=== PATIENT | female | born 1970 | race Caucasian/White ===

== ENCOUNTER 2018-09-12 09:45 | Outpatient (CLI) | payer OTHER ==
[2018-09-12 10:56] LABS: Hemoglobin 14.3 g/dL (12.0-16.0); Mean Corpuscular HGB CONC 34.2 g/dL (32.0-36.0); Mean Corpuscular Hemoglobin 32.5 pg (27.0-31.0); Mean Corpuscular Volume 95.1 fL (78.0-98.0); Mean Platelet Volume 7.6 fL (7.4-10.4); Platelet Count 207 thou/uL (130-400); RBC Distribution Width 10.8 % (11.5-14.5); White Blood Cell (WBC) Count 5.6 thou/uL (4.8-10.8)
[2018-09-12 11:07] LABS: BHCG - Serum Negative (NEGATIVE); Pregs Control Background? CLEAR/WHITE (CLR/WHITE); Pregs Control Bar Appear? YES (CONTROL BAR)
[2018-09-12 11:21] LABS: ALT (SGPT) 58 U/L (8-55); AST (SGOT) 63 U/L (5-34); Albumin 4.4 g/dL (3.5-5.0); Alkaline Phosphatase 72 U/L (40-150); Anion Gap 12 mmol/L (10-20); BUN (Urea Nitrogen) 13 mg/dL (7.0-18.7); Bilirubin, Total 0.5 mg/dL (0.2-1.2); Calc. Creatinine Clearance 0 mL/min (70-130); Calcium 9.6 mg/dL (7.8-10.44); Carbon Dioxide 25 mmol/L (22-29); Chloride 107 mmol/L (98-107); Estimated GFR-MDRD 86; Glucose 110 mg/dL (70-105); Potassium 4.3 mmol/L (3.5-5.1); Protein, Total 8.4 g/dL (6.0-8.3); Sodium 140 mmol/L (136-145)
== END 2018-09-12 09:46 | disposition home or self-care (01) ==
LOC: LABBT 09:45
PROVIDERS: ATTEND Obstetrics & Gynecology
DX: Z01.812 Encounter for preprocedural laboratory examination (principal); N85.8 Other specified noninflammatory disorders of uterus
CPT/HCPCS: 80053; 84703; 85027; 86850; 86900; 86901

== ENCOUNTER 2018-09-12 11:15 | Inpatient (IN) | payer OTHER ==
[2018-09-12 10:01] VITALS: BMI 39.1
[2018-09-16] MEDS ORDERED: CEFAZOLIN 2 GM/50 ML BAG ONE (09:37)
[2018-09-16] MEDS ORDERED: Fentanyl 100 MCG/2 ML VIAL ONE ×3 (11:46→15:31)
[2018-09-16] MEDS ORDERED: HYDROmorphone 0.5 MG/0.5 ML SYRINGE ONE ×2 (11:46)
[2018-09-16] MEDS ORDERED: Ondansetron PF 4 MG/2 ML Vial IVP PRN (13:19)
[2018-09-16] MEDS ORDERED: Naloxone HCl 0.4 mg/ml Vial IV PRN (13:19)
[2018-09-16] MEDS ORDERED: fentaNYL Citrate/PF 2,000 MCG in Sodium Chloride 0.9% 60 ML IV PRN (13:19)
[2018-09-16] MEDS ORDERED: Ondansetron HCl/PF 4 MG/2 ML Vial IVP PRN (13:19)
[2018-09-16] MEDS ORDERED: Zolpidem Tartrate 5 MG TAB PO PRN (13:19)
[2018-09-16] MEDS ORDERED: HYDROmorphone 2 MG/ML VIAL SLOW IVP PRN (13:19)
[2018-09-16] MEDS ORDERED: diphenhydrAMINE 50 MG/ML VIAL IVP PRN (13:19)
[2018-09-16] MEDS ORDERED: Promethazine HCl 25 MG/ML VIAL IM PRN ×2 (13:19)
[2018-09-16] MEDS ORDERED: Promethazine HCl 25 MG/ML VIAL SLOW IVP PRN (13:19)
[2018-09-16] MEDS ORDERED: diphenhydrAMINE 50 MG/ML VIAL IM PRN (13:19)
[2018-09-16] MEDS ORDERED: PACU-Morphine 4MG/ML VIAL SLOW IVP PRN (13:19)
[2018-09-16] MEDS ORDERED: diphenhydrAMINE 25 MG CAP PO PRN (13:19)
[2018-09-16] MEDS ORDERED: Communication Order-Pharmacy FS SCH (13:30)
[2018-09-16] MEDS ORDERED: Estradiol 0.1mg/24 Hour Patch (Weekly) TD SCH (16:53)
[2018-09-16] MEDS ORDERED: traMADol HCl 50 MG TAB PO PRN ×2 (16:53)
[2018-09-16] MEDS ORDERED: Morphine 2 MG/ML SYRINGE SLOW IVP PRN (16:53)
[2018-09-16] MEDS ORDERED: Simethicone Chewable 80 MG TAB PO PRN (16:53)
[2018-09-16] MEDS ORDERED: Bisacodyl 10 MG SUPP PR PRN (16:53)
[2018-09-16] MEDS: Lactated Ringer's 1,000 ML IV SCH (16:59)
[2018-09-16] MEDS: Ketorolac Tromethamine 30 MG/ML VIAL IVP SCH ×2 (18:22→23:52)
[2018-09-16] MEDS ORDERED: Dexamethasone 20 MG/5 ML VIAL ONE (20:27)
[2018-09-16] MEDS ORDERED: PROPOFOL 200 MG/20 ML VIAL ONE (20:27)
[2018-09-16] MEDS ORDERED: Glycopyrrolate 0.2 MG/ML 5 ML SYRINGE ONE (20:27)
[2018-09-16] MEDS ORDERED: Ketorolac Tromethamine 30 MG/ML VIAL ONE (20:27)
[2018-09-16] MEDS ORDERED: ePHEDrine/0.9% NaCl/PF SYRINGE 50 mg/10 ml ONE (20:27)
[2018-09-16] MEDS ORDERED: Lidocaine 1% PF 5 ML VIAL ONE (20:27)
[2018-09-16] MEDS ORDERED: Ondansetron PF 4 MG/2 ML Vial ONE (20:27)
[2018-09-17] MEDS: Lactated Ringer's 1,000 ML IV SCH ×2 (01:15→19:07)
[2018-09-17] MEDS ORDERED: Naloxone HCl 0.4 mg/ml Vial IV PRN (04:44)
[2018-09-17] MEDS ORDERED: Promethazine HCl 25 MG/ML VIAL IM PRN (04:44)
[2018-09-17] MEDS ORDERED: diphenhydrAMINE 50 MG/ML VIAL IVP PRN (04:44)
[2018-09-17] MEDS ORDERED: diphenhydrAMINE 25 MG CAP PO PRN (04:44)
[2018-09-17] MEDS ORDERED: Zolpidem Tartrate 5 MG TAB PO PRN (04:44)
[2018-09-17] MEDS ORDERED: Ondansetron PF 4 MG/2 ML Vial IVP PRN (04:44)
[2018-09-17] MEDS ORDERED: Morphine CADD 1 MG/ML CADD IVPB PRN (04:44)
[2018-09-17] MEDS ORDERED: diphenhydrAMINE 50 MG/ML VIAL IM PRN (04:44)
[2018-09-17] MEDS ORDERED: Morphine 2 MG/ML SYRINGE SLOW IVP SCH (04:45)
[2018-09-17] MEDS ORDERED: Communication Order-Pharmacy FS SCH (04:45)
[2018-09-17 07:26] LABS: Hemoglobin 12.3 g/dL (12.0-16.0); Mean Corpuscular HGB CONC 33.1 g/dL (32.0-36.0); Mean Corpuscular Hemoglobin 31.5 pg (27.0-31.0); Mean Corpuscular Volume 95.2 fL (78.0-98.0); Mean Platelet Volume 7.3 fL (7.4-10.4); Platelet Count 190 thou/uL (130-400); RBC Distribution Width 10.7 % (11.5-14.5); Red Blood Cell (RBC) Count 3.91 mill/uL (4.20-5.40)
[2018-09-17] MEDS ORDERED: Morphine 4 MG/ML VIAL SLOW IVP PRN (07:45)
[2018-09-17] MEDS ORDERED: Morphine 10 MG/ML VIAL SLOW IVP PRN (07:49)
--- NOTE | 2018-09-17 08:31 | OP ---
DATE OF PROCEDURE: 09/16/2018 PREOPERATIVE DIAGNOSES: 1. 48-year-old female with 20 cm adnexal mass with pelvic pain. 2. Most likely serous cystadenoma. 3. Postmenopausal state. POSTOPERATIVE DIAGNOSES: 1. 48-year-old female with 20-cm adnexal mass with pelvic pain. 2. Most likely serous cystadenoma. 3. Postmenopausal state. PROCEDURES PERFORMED: Total abdominal hysterectomy and bilateral salpingo-oophorectomy. SECURITY SME SURGEON: Toshia Ferraro MD ANESTHESIA: General endotracheal. ESTIMATED BLOOD LOSS: 100 mL. COMPLICATIONS: None. COUNTS: Correct x2. ANTIBIOTICS: 2 g Ancef, on-call to OR. FINDINGS: 1. Large, smooth, capsuled right ovarian cyst, most likely serous cystadenoma. Intact capsule, no resistance noted. 2. Postmenopausal-appearing left ovary, tube, and uterus. 3. Normal-appearing omentum, bowel with no evidence of any tumor implants or ascitic fluid noted on exam of the abdomen. 4. Clear urine present in Kulkarni catheter postprocedure. 5. Courses of the ureters postprocedure were noted to be below the pedicle sites on palpation and visualization. PATHOLOGY: Uterus, cervix, bilateral tubes, and ovaries. DISPOSITION: Recovery room, stable. DESCRIPTION OF PROCEDURE: The patient previously received informed consent in regard to surgery. She was taken back to the operating room, where she received general endotracheal anesthetic agent without complications. She was prepped and draped in usual sterile fashion and Kulkarni catheter was then placed. A vertical midline incision was taken up toward the umbilicus. The fascia was then nicked in midline. Fascial incision extended superiorly and inferiorly. The peritoneal cavity was entered and a large adnexal mass was protruding through the peritoneal opening. The ovary was easily delivered intact and the pedicles beneath the ovary were clamped with 2 Kevin clamps. A back clamp was also placed, and then, it was cut intervening between this portion with Calhoun scissors. The large cyst of the right ovary was sent for final pathology. The pedicle sites were tied with 4-1/2 tie of 0 Vicryl and a free tie of 0 Vicryl securing hemostasis. O'Donovan O'Carpenter retractor was then placed, bowel was packed away with moistened laparotomy sponges. The uterus was grasped with 2 Jeniffer clamps, and the left tube and ovary were inspected. The left round ligament was then grasped and suture ligated with 0 Vicryl suture and transected medially through this. A window in the posterior broad ligament was made just below the left infundibulopelvic ligament, and this was clamped and cut and a 4-1/2 tie of 0 Vicryl secured this to the pedicle. The broad ligament was incised and the uterine vessels were skeletonized. The anterior leaf of the broad ligament was opened up and the vesicouterine peritoneum was dissected in layering technique dropping the bladder past cervicovaginal junction. The uterine vessels were clamped with Kevin clamps, and the internal cervical os region transected and suture ligated. This was then repeated, the right round ligament being suture ligated and transected. Again, a defect in the posterior broad ligament was made removing the remainder of the right fallopian tube. The pedicles were secured with 4-1/2 tie and free tie of 0 Vicryl. The uterine vessels again were skeletonized in similar fashion. Vesicouterine peritoneum was incised in layering technique, dropping the bladder past the cervical vaginal angles. Straight [place] clamps were then utilized to clamp the remainder of the cardinal uterosacral ligaments. Sequential bites and transection staying within the previous pedicle sites were carried out to the vaginal angles of reach. Two Kevin clamps were placed across the vaginal angles and the bladder was noted to be safely dissected away from the operative site. The cervix was then incised with Calhoun scissors and Courtney scissors removing the specimen. The vaginal cuff angles were then suture ligated with Hausmeister stitch fashion with 0 Vicryl suture and then intervening [id number] stitches of 0 Vicryl placed in remainder of the vaginal cuff securing the vaginal cuff closure. The pelvis was then irrigated and suctioned. Pedicle sites were noted to be all hemostatic. The course of the ureters was traced and appeared to be well below the operative sites. Clear urine was draining from the Kulkarni catheter. The retractor along with the sponges were removed. The lap count was correct. The fascia was then closed. The muscle bellies were inspected and noted to be hemostatic. The fascia was then closed with a looped #1 PDS in running continuous fashion. Fascial closure was confirmed and was noted to be adequately approximated. Subcutaneous tissue was irrigated and noted to be hemostatic prior to approximation with 3-0 plain gut in a running technique. The skin was then stapled. Surgery was terminated and there were no anesthetic or surgical complications. Job ID: [id number]
[2018-09-17] MEDS: Ketorolac Tromethamine 30 MG/ML VIAL IVP SCH ×2 (08:40→19:17)
[2018-09-17] MEDS ORDERED: HYDROcodone/Acetaminophen 7.5/325 mg Tablet PO PRN (16:03)
[2018-09-17] MEDS: Ibuprofen 800 MG TAB PO SCH (22:20)
[2018-09-18] MEDS ORDERED: HYDROcodone/Acetaminophen 7.5/325 mg Tablet PO PRN ×2 (01:03)
[2018-09-18] MEDS: Lactated Ringer's 1,000 ML IV SCH ×2 (01:39→13:48)
[2018-09-18] MEDS ORDERED: Ondansetron ODT 4 MG TAB PO PRN (10:39)
[2018-09-18 12:04] VITALS: BP 119/80; TEMP 98.5
[2018-09-18] MEDS ORDERED: Estradiol 0.1mg/24 Hour Patch (Weekly) TD SCH (12:30)
--- NOTE | 2018-09-18 13:36 | DIS ---
DATE OF ADMISSION: 09/16/2018 DATE OF DISCHARGE: 09/18/2018 DIAGNOSIS: Mucinous cystadenoma of the ovary. PROCEDURE PERFORMED: Total abdominal hysterectomy with bilateral salpingo-oophorectomy. SUMMARY OF HOSPITAL COURSE: Ms. Trores is a 48-year-old [place] female, who had developed approximately 20 cm adnexal mass for approximately a year. She then had increasing symptoms of pelvic pain and abdominal distention due to the mass effect. She underwent a definitive surgical therapy with a BALWINDER-BSO on 09/16/2018. Postoperatively, she has had stable vital signs throughout, her hematocrit was 37.3%. 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 She is ambulating, voiding without difficulty, tolerating her diet, and is passing flatus. Her pathology did show a benign mucinous cystadenoma of the right ovary. Her left ovary had benign follicular cyst and was unremarkable. Her uterus had no significant pathologic disease seen. She will be discharged home today and will have a prescription for [place] 5 mg-325 mg 1 to 2 q.4 to 6 hours p.r.n. pain, [id number] ibuprofen, and will have a followup for staple removal in 10 days and 6 weeks' postop. Job ID: [id number]
[2018-09-18] MEDS: Ibuprofen 800 MG TAB PO SCH (13:48)
[2018-09-21] MEDS ORDERED: Ibuprofen 800 MG TAB PO SCH (21:00)
== END 2018-09-18 13:40 | disposition home or self-care (01) | DRG 743 ==
LOC: SURG B 09-16 09:10 → 3SE 09-16 16:50
PROVIDERS: ADMIT Obstetrics & Gynecology; ATTEND Obstetrics & Gynecology
PROC: 0UT90ZZ Resection of Uterus, Open Approach (ICD-10-PCS; principal; 2018-09-16)
PROC: 0UT20ZZ Resection of Bilateral Ovaries, Open Approach (ICD-10-PCS; 2018-09-16)
PROC: 0UT70ZZ Resection of Bilateral Fallopian Tubes, Open Approach (ICD-10-PCS; 2018-09-16)
DX: D27.0 Benign neoplasm of right ovary (principal); N83.02 Follicular cyst of left ovary
CPT/HCPCS: 36415; 85027; 88307; J1100; J1170; J1885; J2001; J2270; J2405; J2550; J2704; J3010; J7050; Q0162

== ENCOUNTER 2018-11-10 11:43 | Emergency (ER) | payer SELFPAY ==
[2018-11-10] MEDS ORDERED: ISOVUE-370 76%-LOCM 1 ML ONE (12:46)
[2018-11-10] MEDS ORDERED: Iopamidol 370 76% 50 ML VIAL FS ONE (12:46)
[2018-11-10 13:23] LABS: #Eosinphils 0.1 thou/uL (0.0-0.7); #Lymphocytes 1.8 thou/uL (1.20-3.40); #Monocytes 0.7 thou/uL (0.11-0.59); #Neutrophils 5.4 thou/uL (1.40-6.50); %Basophils 0.4 % (0.0-1.0); %Lymphocytes 22.5 % (21.0-51.0); %Monocytes 8.5 % (0.0-10.0); %Neutrophils 67.6 % (42.0-75.0); Hemoglobin 12.5 g/dL (12.0-16.0); Mean Corpuscular HGB CONC 33.2 g/dL (32.0-36.0); Mean Corpuscular Hemoglobin 32.2 pg (27.0-31.0); Mean Corpuscular Volume 97.2 fL (78.0-98.0); Mean Platelet Volume 7.3 fL (7.4-10.4); Platelet Count 167 thou/uL (130-400); RBC Distribution Width 10.9 % (11.5-14.5); Red Blood Cell (RBC) Count 3.89 mill/uL (4.20-5.40); White Blood Cell (WBC) Count 7.9 thou/uL (4.8-10.8)
[2018-11-10 13:44] LABS: ALT (SGPT) 34 U/L (8-55); AST (SGOT) 30 U/L (5-34); Albumin 3.8 g/dL (3.5-5.0); Alkaline Phosphatase 68 U/L (40-150); Anion Gap 10 mmol/L (10-20); BUN (Urea Nitrogen) 12 mg/dL (7.0-18.7); Bilirubin, Total 0.5 mg/dL (0.2-1.2); Calc. Creatinine Clearance 0 mL/min (70-130); Calcium 8.6 mg/dL (7.8-10.44); Carbon Dioxide 26 mmol/L (22-29); Chloride 106 mmol/L (98-107); Estimated GFR-MDRD 79; Globulin 3.7 g/dL (2.4-3.5); Glucose 194 mg/dL (70-105); Potassium 3.5 mmol/L (3.5-5.1); Protein, Total 7.5 g/dL (6.0-8.3); Sodium 138 mmol/L (136-145)
[2018-11-10 14:55] LABS: Bilirubin Negative (Negative); Blood, Urine Negative (Negative); Clarity CLEAR (Clear); Glucose, Urine (Dipstick) Negative (Negative); Leukocyte Small (Negative); Nitrite Negative (Negative); Protein, Urine (Dipstick) Negative (Neg-Trace); Specific Gravity, Urine 1.008 (1.002-1.036); Urobilinogen 0.2 mg/dL (0.2-1.0)
[2018-11-10 14:57] LABS: Bacteria/HPF None Seen HPF (None Seen); Hyaline Casts/LPF 0-3 HYALINE CAST LPF (0-3 Hyaline); Pathc Cast-AUWi Flag 0.14 (0-2.49); RBC/HPF 0-3 HPF (0-3); Squamous Epithelial 0-3 HPF (0-3)
--- NOTE | 2018-11-10 15:05 | CT ---
CT OF THE ABDOMEN AND PELVIS WITH CONTRAST: COMPARISON: 11/05/2016. HISTORY: Diarrhea. Two episodes of bloody stool. TECHNIQUE: Multiple contiguous axial images were obtained in a CT of the abdomen and pelvis with contrast. P.o. contrast was administered. Coronal reformats were performed. FINDINGS: The patient is status post cholecystectomy and hysterectomy. The liver, kidneys, adrenal glands, spl een, and pancreas are unremarkable. NO free air, free fluid, or stranding changes are seen in the ab domen or pelvis. The large and small bowel are unremarkable. The appendix is unremarkable. No abdominal or pelvic ly mphadenopathy are seen. Degenerative changes are seen in the spine. The visualized inferior thorax and abdominal wall soft t issues are unremarkable. IMPRESSION: No evidence of acute intraabdominal/pelvic abnormality. POS: MYRON
== END 2018-11-10 16:11 | disposition home or self-care (01) ==
LOC: ERS 11:43
DX: R19.7 Diarrhea, unspecified (principal)
CPT/HCPCS: 36415; 74177; 80053; 81003; 81015; 83605; 85025; 93005; Q9966; Q9967

== ENCOUNTER 2019-04-28 01:55 | Emergency (ER) | payer SELFPAY ==
--- NOTE | 2019-04-28 06:46 | ULT ---
ULTRASOUND WITH DOPPLER DUPLEX VENOUS LOWER EXTREMITY LEFT: CPT: 80708 ICD-10-PCS: B54D INDICATION: Left lower extremity pain. TECHNIQUE: Color flow Doppler, spectral waveform analysis of pulsed Doppler, and bess-scale imaging with henok ashok and augmentation, were used to evaluate the left common femoral, femoral, popliteal, posterior t ibial, and superficial femoral, veins; and the proximal portions of the profunda femoral and greater saphenous, veins. FINDINGS: There is appropriate compressibility and flow within the imaged deep vein system of the left lower ex tremity without evidence of thrombus. IMPRESSION: No deep venous thrombosis. POS: STEFFEN
== END 2019-04-28 06:00 | disposition home or self-care (01) ==
LOC: ERS 01:55
DX: S80.12XA Contusion of left lower leg, initial encounter (principal); X58.XXXA Exposure to other specified factors, initial encounter

== ENCOUNTER 2019-10-31 12:11 | Emergency (ER) | payer SELFPAY | END 2019-10-31 13:45 | disposition home or self-care (01) | LOC: ERS 12:11 | DX: S90.921A Unspecified superficial injury of right foot, initial encounter (principal); L84 Corns and callosities; E11.9 Type 2 diabetes mellitus without complications; Z79.84 Long term (current) use of oral hypoglycemic drugs; W45.8XXA Other foreign body or object entering through skin, initial encounter | CPT/HCPCS: 99282 ==

== ENCOUNTER 2020-09-02 10:51 | Emergency (ER) | payer OTHER ==
[2020-09-02 16:38] LABS: SARS-CoV-2 MS2 Positive; SARS-CoV-2 N Gene Negative; SARS-CoV-2 S Gene Negative; SARS-CoV-2 by NAA Not Detected (NotDetected); SARS-CoV-2 orf1ab Negative
== END 2020-09-02 12:00 | disposition home or self-care (01) ==
LOC: ERS 10:51
DX: B34.9 Viral infection, unspecified (principal); Z20.828 Contact with and (suspected) exposure to other viral communicable diseases; E78.5 Hyperlipidemia, unspecified; E78.00 Pure hypercholesterolemia, unspecified; E11.9 Type 2 diabetes mellitus without complications; Z79.84 Long term (current) use of oral hypoglycemic drugs
CPT/HCPCS: 87635; 96372; 99284; J0500; U0003

== ENCOUNTER 2021-11-21 14:28 | Emergency (ER) | payer BC ==
[~2021-11-21 14:28] MED LIST: Iopamidol 370 76% 100 ML VIAL ONE
[2021-11-21 15:32] LABS: Bilirubin Negative (Negative); Blood, Urine Negative (Negative); Clarity Clear (Clear); Glucose, Urine (Dipstick) Normal (Negative); Ketone, Urine Negative (Negative); Leukocyte Negative Leu/uL (Negative); Nitrite Negative (Negative); Protein, Urine (Dipstick) Negative (Neg-Trace); Specific Gravity, Urine 1.027 (1.002-1.036); Urobilinogen Normal mg/dL (Less than 2)
[2021-11-21 15:39] LABS: #Eosinphils 0.1 thou/uL (0.0-0.7); #Lymphocytes 2.4 thou/uL (1.20-3.40); #Monocytes 0.5 thou/uL (0.11-0.59); #Neutrophils 4.4 thou/uL (1.40-6.50); %Basophils 0.3 % (0.0-1.0); %Lymphocytes 31.9 % (21.0-51.0); %Monocytes 7.1 % (0.0-10.0); %Neutrophils 59.7 % (42.0-75.0); Hemoglobin 13.8 g/dL (12.0-16.0); Mean Corpuscular HGB CONC 32.5 g/dL (32.0-36.0); Mean Corpuscular Hemoglobin 31.5 pg (27.0-31.0); Mean Corpuscular Volume 96.8 fL (78.0-98.0); Mean Platelet Volume 7.4 fL (7.4-10.4); Platelet Count 170 thou/uL (130-400); RBC Distribution Width 11.1 % (11.5-14.5); White Blood Cell (WBC) Count 7.4 thou/uL (4.8-10.8)
[2021-11-21 15:46] LABS: BHCG - Serum Negative (NEGATIVE); Pregs Control Background? CLEAR/WHITE (CLR/WHITE); Pregs Control Bar Appear? YES (CONTROL BAR)
[2021-11-21 16:58] LABS: ALT (SGPT) 24 U/L (8-55); AST (SGOT) 23 U/L (5-34); Albumin 4.3 g/dL (3.5-5.0); Alkaline Phosphatase 91 U/L (40-110); Anion Gap 14 mmol/L (10-20); BUN (Urea Nitrogen) 14 mg/dL (9.8-20.1); Bilirubin, Total 0.3 mg/dL (0.2-1.2); Calc. Creatinine Clearance 0 mL/min (70-130); Calcium 9.1 mg/dL (7.8-10.44); Carbon Dioxide 24 mmol/L (22-29); Chloride 107 mmol/L (98-107); Globulin 3.8 g/dL (2.4-3.5); Glucose 104 mg/dL (70-105); Lipase 27 U/L (8-78); Potassium 3.7 mmol/L (3.5-5.1); Protein, Total 8.1 g/dL (6.0-8.3); Sodium 141 mmol/L (136-145)
[2021-11-21] MEDS ORDERED: Famotidine 20 MG TAB ONE (17:45)
== END 2021-11-21 18:15 | disposition home or self-care (01) ==
LOC: ERS 14:28
DX: R10.11 Right upper quadrant pain (principal); E78.5 Hyperlipidemia, unspecified; E78.00 Pure hypercholesterolemia, unspecified; E11.9 Type 2 diabetes mellitus without complications; Z79.84 Long term (current) use of oral hypoglycemic drugs
CPT/HCPCS: 74177; 80053; 81003; 83690; 84703; 85025; Q9967

== ENCOUNTER 2021-11-22 16:56 | Emergency (ER) | payer BC ==
[2021-11-22] MEDS ORDERED: Ketorolac Tromethamine 30 MG/ML VIAL ONE (21:16)
== END 2021-11-22 22:53 | disposition home or self-care (01) ==
LOC: ERS 16:56
DX: G89.29 Other chronic pain (principal); E66.01 Morbid (severe) obesity due to excess calories; R10.9 Unspecified abdominal pain
CPT/HCPCS: 76770; 96372; J1885